=== PATIENT | female | born 1970 | race Caucasian/White ===

== ENCOUNTER 2019-01-04 19:20 | Inpatient (IN) | payer MEDICAID, OTHER ==
[2019-01-04 19:39] LABS: ADD MAN DIFF? NO
[2019-01-04 19:42] LABS: ABNORMAL IP MESSAGE 1; BASOPHIL # 0.1 10^3/ul (0.0-0.1); BASOPHILS % 0.6 % (0.0-2.0); EOSINOPHILS % 0.3 % (0.0-7.0); HEMATOCRIT 54.7 % (37.0-47.0); HEMOGLOBIN 15.1 g/dl (12.0-16.0); LYMPHOCYTES # 1.4 10^3/ul (0.8-2.9); MEAN CORPUSCULAR HEMOGLOBIN 25.3 pg (29.0-33.0); MEAN CORPUSCULAR HGB CONC 27.6 g/dl (32.0-37.0); MEAN CORPUSCULAR VOLUME 91.8 fl (82.0-101.0); MONOCYTE # 0.6 10^3/ul (0.3-0.9); MONOCYTES % 6.4 % (0.0-11.0); NEUTROPHIL # 7.5 10^3/ul (1.6-7.5); NEUTROPHILS % 77.8 % (39.0-77.0); NUCLEATED RED BLOOD CELLS # 0.1 10^3/ul (0.0-0.0); NUCLEATED RED BLOOD CELLS% 0.6 /100WBC (0.0-0.0); PLATELET COUNT 274 10^3/UL (140-415); RED BLOOD COUNT 5.96 10^6/ul (4.20-5.40); RED CELL DISTRIBUTION WIDTH 18.5 % (11.5-14.5)
[2019-01-04 19:42] LABS: WHITE BLOOD COUNT 9.6 10^3/ul (4.8-10.8)
[2019-01-04 19:49] LABS: POSITIVE DIFF @See below
[2019-01-04] MEDS: CEFTRIAXONE 1 GM/50 ML (PMX) 50 ML IVPB (19:50)
[2019-01-04] MEDS: METHYLPREDNISOLONE 125 MG INJ IV (19:50)
[2019-01-04] MEDS: MAGNESIUM SULFATE 2 GM/50 ML 50 ML IVPB ×2 (19:51→22:58)
[2019-01-04 20:00] LABS: ANION GAP 7 (5-13); BLOOD UREA NITROGEN 23 mg/dl (7-20); CALCIUM 8.5 mg/dl (8.4-10.2); CARBON DIOXIDE 32 mmol/L (21-31); CHLORIDE 103 mmol/L (97-110); CREATININE 1.53 mg/dl (0.44-1.00); Estimated GFR 37 mL/min (>60); GLUCOSE 171 mg/dl (70-220); POTASSIUM 4.8 mmol/L (3.5-5.1); SODIUM 142 mmol/L (135-144)
[2019-01-04] MEDS: ALBUTEROL 0.5% (NEB) 2.5 MG/0.5 ML AMP INH (20:03)
[2019-01-04] MEDS: IPRATROPIUM (NEB) 0.5 MG/2.5 ML AMP INH (20:03)
[2019-01-04 20:21] LABS: AADO2 Arterial 418.4 mmHg (7.0-24.0); Allen Test ACCEPTAB; Arterial Base Excess 1.4 mmol/L (-3.0-3); Arterial Blood Gas Oxygen Sat 98.7 mmHG (95.0-98.0); Arterial COHb 2.3 % (0.0-3.0); Arterial Fraction of Oxyhgb 95.8 % (93.0-99.0); Arterial HCO3 36.2 mmol/L (22.0-26.0); Arterial MetHb 0.6 % (0.0-1.5); Arterial pCO2 122.2 mmhg (35-45); Blood Gas IEPAP 15/5; Blood Gas PS 10; MODE MASK - BIPAP; Site Right Radial
[2019-01-04] MEDS: AZITHROMYCIN 500MG/NS (PMX) 250 ML IV (20:36)
[2019-01-04] MEDS: SODIUM CHLORIDE 0.9% 1L BAG IV* (20:36)
[2019-01-04] MEDS: ALBUTEROL/IPRATROPIUM (NEB) 3 ML AMP NEB (21:00)
[2019-01-04] MEDS ORDERED: ACETAMINOPHEN 325 MG TAB PO (21:00)
[2019-01-04] MEDS ORDERED: ONDANSETRON 4 MG INJ IV (21:00)
[2019-01-04 21:01] LABS: B-TYPE NATRIURETIC PEPTIDE 4740 PG/ML (0-125)
[2019-01-04 21:08] LABS: D-DIMER 900.98 ng/ml (<460)
[2019-01-04 21:59] LABS: AADO2 Arterial 143.5 mmHg (7.0-24.0); Allen Test ACCEPTAB; Arterial Base Excess 1.9 mmol/L (-3.0-3); Arterial Blood Gas Oxygen Sat 88.8 mmHG (95.0-98.0); Arterial Fraction of Oxyhgb 86.6 % (93.0-99.0); Arterial HCO3 36.7 mmol/L (22.0-26.0); Arterial MetHb 0.5 % (0.0-1.5); Arterial pCO2 123.6 mmhg (35-45); Blood Gas IEPAP 22/8; MODE MASK - BIPAP; Site Right Radial
[2019-01-04] MEDS ORDERED: HEPARIN 5,000 UNIT/1 ML VIAL SC (22:00)
[2019-01-04] MEDS: PANTOPRAZOLE 40 MG INJ IV (22:29)
[2019-01-04] MEDS: FUROSEMIDE 40 MG INJ IV (22:42)
[2019-01-04] MEDS: ENOXAPARIN 60 MG/0.6 ML SYG SC (22:47)
[2019-01-04 22:59] LABS: AADO2 Arterial 171.6 mmHg (7.0-24.0); Allen Test ACCEPTAB; Arterial Base Excess -1.8 mmol/L (-3.0-3); Arterial Blood Gas Oxygen Sat 93.1 mmHG (95.0-98.0); Arterial Fraction of Oxyhgb 90.8 % (93.0-99.0); Arterial HCO3 30.1 mmol/L (22.0-26.0); Arterial MetHb 0.5 % (0.0-1.5); Arterial pCO2 89.2 mmhg (35-45); Blood Gas IEPAP 22/8; MODE MASK - BIPAP; Site Right Radial
[2019-01-04 23:49] LABS: LACTIC ACID 0.9 mmol/L (0.5-2.0)
[2019-01-05 00:40] LABS: CREATINE KINASE 247 IU/L (23-200)
[2019-01-05 00:51] LABS: CK INDEX 1.9; CK-MB 4.69 ng/ml (0.0-2.4); TROPONIN-I 0.027 ng/ml (0.000-0.120)
[2019-01-05] MEDS: ALBUTEROL/IPRATROPIUM (NEB) 3 ML AMP NEB ×2 (01:40→05:00)
[2019-01-05] MEDS: METHYLPREDNISOLONE 40 MG INJ IV ×4 (01:58→18:14)
[2019-01-05 05:09] LABS: Allen Test ACCEPTAB; Arterial Base Excess 3.5 mmol/L (-3.0-3); Arterial Blood Gas Oxygen Sat 96.1 mmHG (95.0-98.0); Arterial COHb 1.7 % (0.0-3.0); Arterial Fraction of Oxyhgb 94.1 % (93.0-99.0); Arterial HCO3 38.3 mmol/L (22.0-26.0); Arterial MetHb 0.4 % (0.0-1.5); Arterial pCO2 128.1 mmhg (35-45); Blood Gas IEPAP 22/8; MODE MASK - BIPAP; Site Right Radial
[2019-01-05 05:37] LABS: WHITE BLOOD COUNT 8.7 10^3/ul (4.8-10.8)
[2019-01-05 05:37] LABS: ABNORMAL IP MESSAGE 1; HEMATOCRIT 52.9 % (37.0-47.0); HEMOGLOBIN 14.3 g/dl (12.0-16.0); MEAN CORPUSCULAR HEMOGLOBIN 25.6 pg (29.0-33.0); MEAN CORPUSCULAR VOLUME 94.8 fl (82.0-101.0); NUCLEATED RED BLOOD CELLS% 0.3 /100WBC (0.0-0.0); PLATELET COUNT 222 10^3/UL (140-415); RED BLOOD COUNT 5.58 10^6/ul (4.20-5.40); RED CELL DISTRIBUTION WIDTH 18.2 % (11.5-14.5)
[2019-01-05 05:40] LABS: ADD MAN DIFF? YES; POSITIVE DIFF @See below
[2019-01-05 05:54] LABS: HEMOGLOBIN A1C 5.7 % (0-5.9)
[2019-01-05 06:13] LABS: ALANINE AMINOTRANSFERASE 30 IU/L (13-69); ALBUMIN/GLOBULIN RATIO 0.78; ALKALINE PHOSPHATASE 123 IU/L (42-121); ANION GAP 6 (5-13); ASPARTATE AMINO TRANSFERASE 36 IU/L (15-46); BILIRUBIN,INDIRECT 0.2 mg/dl (0-1.1); BILIRUBIN,TOTAL 0.2 mg/dl (0.2-1.3); BLOOD UREA NITROGEN 25 mg/dl (7-20); CALCIUM 8.1 mg/dl (8.4-10.2); CARBON DIOXIDE 34 mmol/L (21-31); CHLORIDE 103 mmol/L (97-110); CHOL/HDL RATIO 4.5 RATIO; CHOLESTEROL 118 mg/dl (100-200); CREATINE KINASE 151 IU/L (23-200); CREATININE 1.88 mg/dl (0.44-1.00); Estimated GFR 29 mL/min (>60); GLUCOSE 162 mg/dl (70-220); HDL CHOLESTEROL 26 mg/dl (34-88); LDL CHOLESTEROL,CALCULATED 72 mg/dl; MAGNESIUM 2.9 mg/dl (1.7-2.5); POTASSIUM 5.9 mmol/L (3.5-5.1); SODIUM 143 mmol/L (135-144); TOTAL PROTEIN 6.8 g/dl (6.1-8.1); TRIGLYCERIDES 101 mg/dl (0-149)
[2019-01-05 06:15] LABS: CK INDEX 2.4; CK-MB 3.58 ng/ml (0.0-2.4); TROPONIN-I 0.026 ng/ml (0.000-0.120)
[2019-01-05 06:17] LABS: FREE T4 (FREE THYROXINE) 0.81 ng/dl (0.64-1.79)
[2019-01-05] MEDS: FUROSEMIDE 40 MG INJ IV ×2 (06:27→18:14)
[2019-01-05] MEDS: PANTOPRAZOLE 40 MG INJ IV (06:27)
[2019-01-05] MEDS: ALBUMIN HUMAN 25% 100 ML IV ×2 (06:28→09:28)
[2019-01-05 06:33] LABS: THYROID STIMULATING HORMONE 0.888 MIU/L (0.465-4.680)
[2019-01-05] MEDS: LORAZEPAM 2 MG INJ IV (06:57)
[2019-01-05] MEDS: PROPOFOL 100 ML IV (06:57)
[2019-01-05] MEDS ORDERED: SUCCINYLCHOLINE CHLORIDE 100 MG/5 ML SYG IV (07:00)
[2019-01-05 07:11] LABS: ANISOCYTOSIS 1+ (0-0); BAND NEUTROPHILS #M 1.8 10^3/ul (0.0-0.6); BAND NEUTROPHILS % (M) 21 % (0-4); ERYTHROBLAST% (NRBC) (M) 1 % (0-0); LYMPHOCYTES #M 0.4 10^3/ul (0.8-2.9); LYMPHOCYTES % (M) 5 % (15-51); MONOCYTES % (M) 1 % (0-11); PLATELET ESTIMATE NORMAL; POIKILOCYTOSIS 1+ (0-0); POLYCHROMASIA 2+ (0-0); SEG NEUT #M 6.5 10^3/ul (1.6-7.5); SEGMENTED NEUTROPHILS (M) % 73 % (39-77); SMUDGE%M 7 % (0-0); SPHEROCYTES 1+ (0-0)
[2019-01-05 07:30] LABS: AADO2 Arterial 358.8 mmHg (7.0-24.0); Allen Test ACCEPTAB; Arterial Base Excess -0.1 mmol/L (-3.0-3); Arterial COHb 1.4 % (0.0-3.0); Arterial Fraction of Oxyhgb 96.2 % (93.0-99.0); Arterial MetHb 0.4 % (0.0-1.5); Arterial pCO2 83.4 mmhg (35-45); MODE VENT - AC; Site Right Radial
[2019-01-05] MEDS: FENTAnyl (DRIP) 1000 mcg/100mL 100 ML IV (07:43)
[2019-01-05 07:56] LABS: FREE T3 2.67 pg/ml (2.77-5.27)
[2019-01-05] MEDS: ALBUTEROL HFA 8 GM INHALER INH ×3 (09:00→20:12)
[2019-01-05] MEDS: IPRATROPIUM (HFA) 12.9 GM INHALER INH ×3 (09:00→20:13)
[2019-01-05] MEDS: MIDAZOLAM (DRIP) 50 mg/50 mL 50 ML IV ×2 (09:28→19:36)
[2019-01-05] MEDS: LEVOFLOXACIN 250MG/D5W (PMX) 50 ML IVPB (09:54)
[2019-01-05] MEDS: NA POLYST SULFON 15 GM/60 ML BTL NGT (09:55)
[2019-01-05 12:41] LABS: ANION GAP 6 (5-13); BLOOD UREA NITROGEN 29 mg/dl (7-20); CALCIUM 8.3 mg/dl (8.4-10.2); CARBON DIOXIDE 32 mmol/L (21-31); CHLORIDE 104 mmol/L (97-110); CREATININE 2.01 mg/dl (0.44-1.00); Estimated GFR 27 mL/min (>60); GLUCOSE 120 mg/dl (70-220); POTASSIUM 5.3 mmol/L (3.5-5.1); SODIUM 142 mmol/L (135-144)
[2019-01-05] MEDS: CEFEPIME 2GM/50 ML (PMX) 50 ML IVPB (12:53)
[2019-01-05 13:01] LABS: AADO2 Arterial 288.5 mmHg (7.0-24.0); Allen Test ACCEPTAB; Arterial Base Excess 7.3 mmol/L (-3.0-3); Arterial Blood Gas Oxygen Sat 95.3 mmHG (95.0-98.0); Arterial COHb 0.8 % (0.0-3.0); Arterial Fraction of Oxyhgb 94.3 % (93.0-99.0); Arterial MetHb 0.3 % (0.0-1.5); Arterial pCO2 57.4 mmhg (35-45); MODE VENT - AC; Site Right Radial
[2019-01-05] MEDS: LIDOCAINE 1% (MPF) 5 ML VIAL SC (16:19)
[2019-01-05] MEDS: SOD CHLORIDE 0.9% 500 ML IV (21:14)
[2019-01-06] MEDS: METHYLPREDNISOLONE 40 MG INJ IV ×4 (00:06→18:41)
[2019-01-06] MEDS: ALBUTEROL HFA 8 GM INHALER INH ×6 (01:30→20:26)
[2019-01-06] MEDS: IPRATROPIUM (HFA) 12.9 GM INHALER INH ×6 (01:30→20:26)
[2019-01-06] MEDS ORDERED: LORAZEPAM 2 MG INJ (02:23)
[2019-01-06] MEDS: LORAZEPAM 2 MG INJ IV (02:32)
[2019-01-06 04:13] LABS: ADD MAN DIFF? NO
[2019-01-06 04:19] LABS: WHITE BLOOD COUNT 6.6 10^3/ul (4.8-10.8)
[2019-01-06 04:19] LABS: ABNORMAL IP MESSAGE 1; HEMOGLOBIN 11.6 g/dl (12.0-16.0); LYMPHOCYTES # 0.5 10^3/ul (0.8-2.9); LYMPHOCYTES % 7.6 % (15.0-51.0); MEAN CORPUSCULAR HEMOGLOBIN 25.6 pg (29.0-33.0); MEAN CORPUSCULAR VOLUME 88.1 fl (82.0-101.0); MEAN PLATELET VOLUME 9.7 fl (7.4-10.4); MONOCYTE # 0.2 10^3/ul (0.3-0.9); NEUTROPHIL # 5.8 10^3/ul (1.6-7.5); NEUTROPHILS % 88.8 % (39.0-77.0); NUCLEATED RED BLOOD CELLS% 0.3 /100WBC (0.0-0.0); PLATELET COUNT 229 10^3/UL (140-415); RED BLOOD COUNT 4.54 10^6/ul (4.20-5.40); RED CELL DISTRIBUTION WIDTH 18.4 % (11.5-14.5)
[2019-01-06 04:21] LABS: POSITIVE DIFF @See below
[2019-01-06 04:47] LABS: ALANINE AMINOTRANSFERASE 21 IU/L (13-69); ALBUMIN 2.8 g/dl (3.3-4.9); ALBUMIN/GLOBULIN RATIO 0.93; ALKALINE PHOSPHATASE 67 IU/L (42-121); ANION GAP 7 (5-13); ASPARTATE AMINO TRANSFERASE 28 IU/L (15-46); BILIRUBIN,INDIRECT 0.2 mg/dl (0-1.1); BILIRUBIN,TOTAL 0.2 mg/dl (0.2-1.3); BLOOD UREA NITROGEN 43 mg/dl (7-20); CALCIUM 8.4 mg/dl (8.4-10.2); CARBON DIOXIDE 29 mmol/L (21-31); CHLORIDE 107 mmol/L (97-110); CREATININE 2.25 mg/dl (0.44-1.00); Estimated GFR 23 mL/min (>60); GLUCOSE 115 mg/dl (70-220); POTASSIUM 5.1 mmol/L (3.5-5.1); SODIUM 143 mmol/L (135-144); TOTAL PROTEIN 5.8 g/dl (6.1-8.1)
[2019-01-06 04:49] LABS: MAGNESIUM 2.7 mg/dl (1.7-2.5)
[2019-01-06] MEDS: SOD CHLORIDE 0.9% 500 ML IV (05:07)
[2019-01-06] MEDS: ALBUMIN HUMAN 25% 100 ML IV ×2 (05:17→06:18)
[2019-01-06] MEDS: PANTOPRAZOLE 40 MG INJ IV (05:41)
[2019-01-06 08:13] LABS: AADO2 Arterial 160.9 mmHg (7.0-24.0); Allen Test ACCEPTAB; Arterial Base Excess 4.1 mmol/L (-3.0-3); Arterial Blood Gas Oxygen Sat 92.8 mmHG (95.0-98.0); Arterial COHb 0.9 % (0.0-3.0); Arterial Fraction of Oxyhgb 91.8 % (93.0-99.0); Arterial HCO3 29.6 mmol/L (22.0-26.0); Arterial MetHb 0.2 % (0.0-1.5); MODE VENT - AC; Site Right Radial
[2019-01-06] MEDS: SOD CHLORIDE 0.45% 1,000 ML IV (08:41)
[2019-01-06] MEDS: LEVOFLOXACIN 250MG/D5W (PMX) 50 ML IVPB (08:43)
[2019-01-06] MEDS: POLYETHYLENE GLYCOL 17 GM PACKET PO (15:24)
[2019-01-06] MEDS: CEFEPIME 2GM/50 ML (PMX) 50 ML IVPB (15:24)
[2019-01-06] MEDS: ENOXAPARIN 40 MG/0.4 ML SYG SC (15:25)
[2019-01-06] MEDS: FENTAnyl (DRIP) 1000 mcg/100mL 100 ML IV (21:12)
[2019-01-07] MEDS: METHYLPREDNISOLONE 40 MG INJ IV ×4 (00:09→18:12)
[2019-01-07] MEDS: ALBUTEROL HFA 8 GM INHALER INH ×6 (01:10→21:34)
[2019-01-07] MEDS: IPRATROPIUM (HFA) 12.9 GM INHALER INH ×6 (01:11→21:34)
[2019-01-07 05:25] LABS: ABNORMAL IP MESSAGE 1; MEAN CORPUSCULAR HEMOGLOBIN 25.5 pg (29.0-33.0); MEAN CORPUSCULAR HGB CONC 28.6 g/dl (32.0-37.0); MEAN CORPUSCULAR VOLUME 89.4 fl (82.0-101.0); MEAN PLATELET VOLUME 9.7 fl (7.4-10.4); PLATELET COUNT 245 10^3/UL (140-415); RED CELL DISTRIBUTION WIDTH 17.7 % (11.5-14.5)
[2019-01-07 05:25] LABS: WHITE BLOOD COUNT 6.5 10^3/ul (4.8-10.8)
[2019-01-07 05:29] LABS: POSITIVE DIFF @See below
[2019-01-07 05:31] LABS: ADD MAN DIFF? YES
[2019-01-07] MEDS: PANTOPRAZOLE 40 MG INJ IV (05:33)
[2019-01-07] MEDS: SOD CHLORIDE 0.45% 1,000 ML IV (05:33)
[2019-01-07 05:48] LABS: ANION GAP 9 (5-13); BLOOD UREA NITROGEN 58 mg/dl (7-20); CALCIUM 8.8 mg/dl (8.4-10.2); CARBON DIOXIDE 30 mmol/L (21-31); CHLORIDE 106 mmol/L (97-110); CREATININE 2.07 mg/dl (0.44-1.00); Estimated GFR 26 mL/min (>60); GLUCOSE 127 mg/dl (70-220); MAGNESIUM 2.8 mg/dl (1.7-2.5); PHOSPHORUS 5.6 mg/dl (2.5-4.9); SODIUM 145 mmol/L (135-144)
[2019-01-07 05:58] LABS: ALANINE AMINOTRANSFERASE 22 IU/L (13-69); ALBUMIN 3.1 g/dl (3.3-4.9); ALBUMIN/GLOBULIN RATIO 0.93; ALKALINE PHOSPHATASE 69 IU/L (42-121); ANION GAP 10 (5-13); ASPARTATE AMINO TRANSFERASE 24 IU/L (15-46); BILIRUBIN,INDIRECT 0.4 mg/dl (0-1.1); BILIRUBIN,TOTAL 0.4 mg/dl (0.2-1.3); BLOOD UREA NITROGEN 56 mg/dl (7-20); CALCIUM 8.6 mg/dl (8.4-10.2); CARBON DIOXIDE 30 mmol/L (21-31); CHLORIDE 105 mmol/L (97-110); CREATININE 2.26 mg/dl (0.44-1.00); Estimated GFR 23 mL/min (>60); GLUCOSE 131 mg/dl (70-220); POTASSIUM 4.7 mmol/L (3.5-5.1); SODIUM 145 mmol/L (135-144); TOTAL PROTEIN 6.4 g/dl (6.1-8.1)
[2019-01-07] MEDS: DEXTROSE 5% 1,000 ML IV (08:42)
[2019-01-07] MEDS: ENOXAPARIN 40 MG/0.4 ML SYG SC (08:43)
[2019-01-07 08:56] LABS: ANISOCYTOSIS 2+ (0-0); BAND NEUTROPHILS #M 0.5 10^3/ul (0.0-0.6); BAND NEUTROPHILS % (M) 8 % (0-4); LYMPHOCYTES #M 0.2 10^3/ul (0.8-2.9); LYMPHOCYTES % (M) 4 % (15-51); MICROCYTOSIS 2+ (0-0); OVALOCYTES 1+ (0-0); PLATELET ESTIMATE NORMAL; POLYCHROMASIA 3+ (0-0); REACTIVE LYMPHOCYTES #M 0.2 10^3/ul (0.0-0.0); REACTIVE LYMPHOCYTES% (M) 4 % (0-0); SEG NEUT #M 5.5 10^3/ul (1.6-7.5); SEGMENTED NEUTROPHILS (M) % 84 % (39-77); SMUDGE%M 7 % (0-0); STOMATOCYTES 2+ (0-0)
[2019-01-07] MEDS: LEVOFLOXACIN 250MG/D5W (PMX) 50 ML IVPB (09:01)
[2019-01-07 09:55] LABS: AADO2 Arterial 154.5 mmHg (7.0-24.0); Allen Test ACCEPTAB; Arterial Blood Gas Oxygen Sat 95.9 mmHG (95.0-98.0); Arterial COHb 0.5 % (0.0-3.0); Arterial Fraction of Oxyhgb 95.1 % (93.0-99.0); Arterial HCO3 30.3 mmol/L (22.0-26.0); Arterial MetHb 0.3 % (0.0-1.5); Arterial pCO2 64.2 mmhg (35-45); Blood Gas PS 10; MODE VENT - CPAP; Site Right Radial
[2019-01-07] MEDS: FUROSEMIDE 40 MG INJ IV (10:22)
[2019-01-07] MEDS: CEFEPIME 2GM/50 ML (PMX) 50 ML IVPB (10:38)
[2019-01-07 12:18] LABS: AADO2 Arterial 86.7 mmHg (7.0-24.0); Allen Test ACCEPTAB; Arterial Base Excess 3.6 mmol/L (-3.0-3); Arterial Blood Gas Oxygen Sat 93.5 mmHG (95.0-98.0); Arterial COHb 0.6 % (0.0-3.0); Arterial Fraction of Oxyhgb 92.8 % (93.0-99.0); Arterial HCO3 32.7 mmol/L (22.0-26.0); Arterial MetHb 0.2 % (0.0-1.5); Arterial pCO2 71.7 mmhg (35-45); Blood Gas PS 10; MODE VENT - CPAP; Site Right Radial
[2019-01-07] MEDS: MIDAZOLAM (DRIP) 50 mg/50 mL 50 ML IV (12:37)
[2019-01-07 16:41] LABS: ADD UMIC YES; UR ASCORBIC ACID NEGATIVE (NEGATIVE); UR BILIRUBIN (Dip) NEGATIVE (NEGATIVE); UR BLOOD (Dip) 2+ mg/dL (NEGATIVE); UR CLARITY SLIGHTLY CLOUDY (CLEAR); UR COLOR YELLOW (YELLOW); UR GLUCOSE (Dip) 1+ mg/dL (NEGATIVE); UR HYALINE CAST FEW /HPF (NONE SEEN); UR KETONES (Dip) NEGATIVE (NEGATIVE); UR LEUKOCYTE ESTERASE (Dip) NEGATIVE Leu/ul (NEGATIVE); UR MUCUS FEW /HPF (NONE SEEN); UR NITRITE (Dip) NEGATIVE (NEGATIVE); UR RBC > 182 /HPF (0-5); UR SPECIFIC GRAVITY (Dip) 1.017 (1.003-1.030); UR SQUAMOUS EPITHELIAL CELL FEW /HPF (FEW); UR TOTAL PROTEIN (Dip) 3+ mg/dl (NEGATIVE); UR UROBILINOGEN (Dip) NEGATIVE (NEGATIVE); UR WBC 13 /HPF (0-5)
[2019-01-07 16:58] LABS: CREATININE,URINE RANDOM 105.35 mg/dl (20-320)
[2019-01-07 16:58] LABS: SODIUM,URINE RANDOM 39 mmol/L (30-90)
[2019-01-08] MEDS: METHYLPREDNISOLONE 40 MG INJ IV ×5 (00:24→23:15)
[2019-01-08] MEDS: ALBUTEROL HFA 8 GM INHALER INH ×3 (01:24→08:27)
[2019-01-08] MEDS: IPRATROPIUM (HFA) 12.9 GM INHALER INH ×3 (01:25→08:27)
[2019-01-08 04:48] LABS: ADD MAN DIFF? NO
[2019-01-08 04:52] LABS: WHITE BLOOD COUNT 5.6 10^3/ul (4.8-10.8)
[2019-01-08 04:52] LABS: ABNORMAL IP MESSAGE 1; HEMATOCRIT 40.6 % (37.0-47.0); HEMOGLOBIN 11.7 g/dl (12.0-16.0); LYMPHOCYTES # 0.3 10^3/ul (0.8-2.9); LYMPHOCYTES % 5.4 % (15.0-51.0); MEAN CORPUSCULAR HEMOGLOBIN 25.5 pg (29.0-33.0); MEAN CORPUSCULAR HGB CONC 28.8 g/dl (32.0-37.0); MEAN CORPUSCULAR VOLUME 88.5 fl (82.0-101.0); MEAN PLATELET VOLUME 9.8 fl (7.4-10.4); MONOCYTE # 0.2 10^3/ul (0.3-0.9); MONOCYTES % 2.7 % (0.0-11.0); NEUTROPHIL # 5.1 10^3/ul (1.6-7.5); NEUTROPHILS % 91.4 % (39.0-77.0); PLATELET COUNT 202 10^3/UL (140-415); RED BLOOD COUNT 4.59 10^6/ul (4.20-5.40); RED CELL DISTRIBUTION WIDTH 17.5 % (11.5-14.5)
[2019-01-08 05:05] LABS: POSITIVE DIFF @See below
[2019-01-08 05:16] LABS: ALANINE AMINOTRANSFERASE 29 IU/L (13-69); ALBUMIN 2.8 g/dl (3.3-4.9); ALBUMIN/GLOBULIN RATIO 0.96; ALKALINE PHOSPHATASE 57 IU/L (42-121); ANION GAP 9 (5-13); ASPARTATE AMINO TRANSFERASE 25 IU/L (15-46); BILIRUBIN,INDIRECT 0.4 mg/dl (0-1.1); BILIRUBIN,TOTAL 0.4 mg/dl (0.2-1.3); BLOOD UREA NITROGEN 60 mg/dl (7-20); CALCIUM 8.4 mg/dl (8.4-10.2); CARBON DIOXIDE 31 mmol/L (21-31); CHLORIDE 99 mmol/L (97-110); CREATININE 1.78 mg/dl (0.44-1.00); Estimated GFR 31 mL/min (>60); GLUCOSE 307 mg/dl (70-220); POTASSIUM 4.3 mmol/L (3.5-5.1); SODIUM 139 mmol/L (135-144); TOTAL PROTEIN 5.7 g/dl (6.1-8.1)
[2019-01-08 05:22] LABS: PHOSPHORUS 4.6 mg/dl (2.5-4.9)
[2019-01-08 05:22] LABS: MAGNESIUM 2.5 mg/dl (1.7-2.5)
[2019-01-08] MEDS: PANTOPRAZOLE 40 MG INJ IV (05:36)
[2019-01-08] MEDS: FUROSEMIDE 40 MG INJ IV (08:29)
[2019-01-08] MEDS: ENOXAPARIN 40 MG/0.4 ML SYG SC (08:34)
[2019-01-08 09:47] LABS: AADO2 Arterial 125.6 mmHg (7.0-24.0); Allen Test ACCEPTAB; Arterial Base Excess 5.6 mmol/L (-3.0-3); Arterial Blood Gas Oxygen Sat 95.8 mmHG (95.0-98.0); Arterial COHb 0.9 % (0.0-3.0); Arterial Fraction of Oxyhgb 94.6 % (93.0-99.0); Arterial HCO3 33.2 mmol/L (22.0-26.0); Arterial MetHb 0.4 % (0.0-1.5); Blood Gas PS 10; MODE VENT - CPAP; Site Right Radial
[2019-01-08] MEDS: LEVOFLOXACIN 250MG/D5W (PMX) 50 ML IVPB (11:07)
[2019-01-08] MEDS: CEFEPIME 2GM/50 ML (PMX) 50 ML IVPB (12:03)
[2019-01-08] MEDS: ALBUTEROL/IPRATROPIUM (NEB) 3 ML AMP HHN ×3 (14:11→20:23)
[2019-01-08] MEDS ORDERED: PENDING SANTYL ORDER FOR WOUND CARE XX (15:30)
[2019-01-09] MEDS: ALBUTEROL/IPRATROPIUM (NEB) 3 ML AMP HHN ×6 (00:31→20:44)
[2019-01-09 04:52] LABS: ADD MAN DIFF? NO
[2019-01-09 04:59] LABS: WHITE BLOOD COUNT 4.8 10^3/ul (4.8-10.8)
[2019-01-09 04:59] LABS: ABNORMAL IP MESSAGE 1; HEMOGLOBIN 12.4 g/dl (12.0-16.0); LYMPHOCYTES # 0.2 10^3/ul (0.8-2.9); LYMPHOCYTES % 3.1 % (15.0-51.0); MEAN CORPUSCULAR HGB CONC 28.2 g/dl (32.0-37.0); MEAN CORPUSCULAR VOLUME 88.7 fl (82.0-101.0); MEAN PLATELET VOLUME 9.6 fl (7.4-10.4); MONOCYTE # 0.2 10^3/ul (0.3-0.9); MONOCYTES % 3.1 % (0.0-11.0); NEUTROPHIL # 4.5 10^3/ul (1.6-7.5); NEUTROPHILS % 93.4 % (39.0-77.0); PLATELET COUNT 202 10^3/UL (140-415); RED BLOOD COUNT 4.96 10^6/ul (4.20-5.40); RED CELL DISTRIBUTION WIDTH 16.8 % (11.5-14.5)
[2019-01-09 05:08] LABS: POSITIVE DIFF @See below
[2019-01-09] MEDS: METHYLPREDNISOLONE 40 MG INJ IV ×3 (05:15→23:53)
[2019-01-09] MEDS: PANTOPRAZOLE 40 MG INJ IV (05:15)
[2019-01-09 05:31] LABS: ANION GAP 8 (5-13); BLOOD UREA NITROGEN 57 mg/dl (7-20); CALCIUM 9.1 mg/dl (8.4-10.2); CARBON DIOXIDE 33 mmol/L (21-31); CHLORIDE 103 mmol/L (97-110); CREATININE 1.63 mg/dl (0.44-1.00); Estimated GFR 34 mL/min (>60); GLUCOSE 194 mg/dl (70-220); MAGNESIUM 2.6 mg/dl (1.7-2.5); PHOSPHORUS 4.6 mg/dl (2.5-4.9); POTASSIUM 4.2 mmol/L (3.5-5.1); SODIUM 144 mmol/L (135-144)
[2019-01-09 07:58] LABS: AADO2 Arterial 36.5 mmHg (7.0-24.0); Allen Test ACCEPTAB; Arterial Blood Gas Oxygen Sat 94.4 mmHG (95.0-98.0); Arterial COHb 0.8 % (0.0-3.0); Arterial Fraction of Oxyhgb 93.4 % (93.0-99.0); Arterial HCO3 31.8 mmol/L (22.0-26.0); Arterial MetHb 0.3 % (0.0-1.5); Arterial pCO2 62.8 mmhg (35-45); MODE NASAL CANNULA; Site Left Radial
[2019-01-09] MEDS: FUROSEMIDE 40 MG INJ IV (08:13)
[2019-01-09] MEDS: ENOXAPARIN 40 MG/0.4 ML SYG SC (08:15)
[2019-01-09] MEDS: LEVOFLOXACIN 250MG/D5W (PMX) 50 ML IVPB (09:07)
[2019-01-09 16:26] LABS: CREATININE, RANDOM URINE 104 mg/dL (20-275); MICROALBUMIN 295.7 mg/dL; MICROALBUMIN/CREATININE RATIO 2843 (<30)
[2019-01-09] MEDS ORDERED: hydrALAzine 20 MG INJ IV (17:00)
[2019-01-09] MEDS: BALSAM PERU/CASTOR OIL 60 GM TUBE TOP (20:31)
[2019-01-10] MEDS: ALBUTEROL/IPRATROPIUM (NEB) 3 ML AMP HHN ×5 (01:31→21:00)
[2019-01-10 05:12] LABS: ADD MAN DIFF? NO
[2019-01-10 05:22] LABS: ABNORMAL IP MESSAGE 1; HEMATOCRIT 43.1 % (37.0-47.0); HEMOGLOBIN 12.5 g/dl (12.0-16.0); LYMPHOCYTES # 0.2 10^3/ul (0.8-2.9); MEAN CORPUSCULAR HEMOGLOBIN 25.9 pg (29.0-33.0); MEAN CORPUSCULAR VOLUME 89.2 fl (82.0-101.0); MEAN PLATELET VOLUME 10.3 fl (7.4-10.4); MONOCYTE # 0.1 10^3/ul (0.3-0.9); MONOCYTES % 3.1 % (0.0-11.0); NEUTROPHIL # 4.2 10^3/ul (1.6-7.5); NEUTROPHILS % 92.5 % (39.0-77.0); PLATELET COUNT 177 10^3/UL (140-415); RED BLOOD COUNT 4.83 10^6/ul (4.20-5.40); RED CELL DISTRIBUTION WIDTH 16.6 % (11.5-14.5)
[2019-01-10 05:22] LABS: WHITE BLOOD COUNT 4.5 10^3/ul (4.8-10.8)
[2019-01-10 05:42] LABS: POSITIVE DIFF @See below
[2019-01-10 05:44] LABS: PHOSPHORUS 4.3 mg/dl (2.5-4.9)
[2019-01-10 05:44] LABS: MAGNESIUM 2.4 mg/dl (1.7-2.5)
[2019-01-10 05:54] LABS: ANION GAP 7 (5-13); BLOOD UREA NITROGEN 53 mg/dl (7-20); CALCIUM 8.7 mg/dl (8.4-10.2); CARBON DIOXIDE 34 mmol/L (21-31); CHLORIDE 101 mmol/L (97-110); CREATININE 1.48 mg/dl (0.44-1.00); Estimated GFR 38 mL/min (>60); GLUCOSE 139 mg/dl (70-220); POTASSIUM 4.4 mmol/L (3.5-5.1); SODIUM 142 mmol/L (135-144)
[2019-01-10] MEDS: BALSAM PERU/CASTOR OIL 60 GM TUBE TOP ×2 (09:27→21:00)
[2019-01-10] MEDS: FUROSEMIDE 40 MG INJ IV (09:27)
[2019-01-10] MEDS: FAMOTIDINE 20 MG TAB PO (09:28)
[2019-01-10] MEDS: ENOXAPARIN 40 MG/0.4 ML SYG SC (09:33)
[2019-01-10] MEDS: LEVOFLOXACIN 250 MG TAB PO (10:51)
[2019-01-10] MEDS: METHYLPREDNISOLONE 40 MG INJ IV (12:26)
[2019-01-10 12:33] LABS: AADO2 Arterial 30.4 mmHg (7.0-24.0); Allen Test ACCEPTAB; Arterial Base Excess 8.2 mmol/L (-3.0-3); Arterial Blood Gas Oxygen Sat 83.2 mmHG (95.0-98.0); Arterial COHb 1.1 % (0.0-3.0); Arterial HCO3 35.4 mmol/L (22.0-26.0); Arterial MetHb 0.3 % (0.0-1.5); Arterial pCO2 59.2 mmhg (35-45); MODE ROOM AIR; Site Left Radial
[2019-01-11] MEDS: BALSAM PERU/CASTOR OIL 60 GM TUBE TOP ×3 (00:07→20:45)
[2019-01-11] MEDS: ZOLPIDEM 5 MG TAB PO (00:07)
[2019-01-11] MEDS: METHYLPREDNISOLONE 40 MG INJ IV ×2 (01:19→13:28)
[2019-01-11] MEDS: ALBUTEROL/IPRATROPIUM (NEB) 3 ML AMP HHN ×6 (01:32→20:39)
[2019-01-11 05:28] LABS: ADD MAN DIFF? NO
[2019-01-11 05:31] LABS: ABNORMAL IP MESSAGE 1; EOSINOPHILS % 0.2 % (0.0-7.0); HEMATOCRIT 43.7 % (37.0-47.0); HEMOGLOBIN 12.6 g/dl (12.0-16.0); LYMPHOCYTES # 0.2 10^3/ul (0.8-2.9); MEAN CORPUSCULAR HEMOGLOBIN 25.4 pg (29.0-33.0); MEAN CORPUSCULAR HGB CONC 28.8 g/dl (32.0-37.0); MEAN CORPUSCULAR VOLUME 87.9 fl (82.0-101.0); MONOCYTE # 0.2 10^3/ul (0.3-0.9); NEUTROPHIL # 4.7 10^3/ul (1.6-7.5); PLATELET COUNT 165 10^3/UL (140-415); RED BLOOD COUNT 4.97 10^6/ul (4.20-5.40); RED CELL DISTRIBUTION WIDTH 16.5 % (11.5-14.5)
[2019-01-11 05:31] LABS: WHITE BLOOD COUNT 5.1 10^3/ul (4.8-10.8)
[2019-01-11 05:34] LABS: NEUTROPHILS % 91.7 % (39.0-77.0); POSITIVE DIFF @See below
[2019-01-11 05:35] LABS: LYMPHOCYTES % 4.7 % (15.0-51.0)
[2019-01-11 05:52] LABS: ANION GAP 6 (5-13); BLOOD UREA NITROGEN 58 mg/dl (7-20); CALCIUM 8.7 mg/dl (8.4-10.2); CARBON DIOXIDE 35 mmol/L (21-31); CHLORIDE 100 mmol/L (97-110); CREATININE 1.28 mg/dl (0.44-1.00); Estimated GFR 45 mL/min (>60); GLUCOSE 138 mg/dl (70-220); MAGNESIUM 2.2 mg/dl (1.7-2.5); PHOSPHORUS 3.8 mg/dl (2.5-4.9); POTASSIUM 4.8 mmol/L (3.5-5.1); SODIUM 141 mmol/L (135-144)
[2019-01-11] MEDS: LEVOFLOXACIN 250 MG TAB PO (06:49)
[2019-01-11] MEDS: FAMOTIDINE 20 MG TAB PO (08:44)
[2019-01-11] MEDS: ENOXAPARIN 40 MG/0.4 ML SYG SC (08:46)
[2019-01-11] MEDS: BUMETANIDE 1 MG TAB PO (08:57)
[2019-01-12] MEDS: METHYLPREDNISOLONE 40 MG INJ IV
[2019-01-12] MEDS: ALBUTEROL/IPRATROPIUM (NEB) 3 ML AMP HHN ×5 (00:04→16:40)
[2019-01-12] MEDS: LEVOFLOXACIN 250 MG TAB PO (05:59)
[2019-01-12] MEDS: BUMETANIDE 1 MG TAB PO (08:55)
[2019-01-12] MEDS: FAMOTIDINE 20 MG TAB PO (08:55)
[2019-01-12] MEDS: ENOXAPARIN 40 MG/0.4 ML SYG SC (08:57)
[2019-01-12] MEDS: BALSAM PERU/CASTOR OIL 60 GM TUBE TOP (08:58)
[2019-01-12 09:54] LABS: MAGNESIUM 2.1 mg/dl (1.7-2.5)
[2019-01-12 09:54] LABS: PHOSPHORUS 4.8 mg/dl (2.5-4.9)
[2019-01-12 09:55] LABS: ANION GAP 4 (5-13); BLOOD UREA NITROGEN 59 mg/dl (7-20); CALCIUM 9.2 mg/dl (8.4-10.2); CARBON DIOXIDE 37 mmol/L (21-31); CHLORIDE 103 mmol/L (97-110); CREATININE 1.14 mg/dl (0.44-1.00); Estimated GFR 51 mL/min (>60); GLUCOSE 157 mg/dl (70-220); POTASSIUM 4.9 mmol/L (3.5-5.1); SODIUM 144 mmol/L (135-144)
== END 2019-01-12 17:40 | disposition home or self-care (01) | DRG 208 ==
LOC: TEL 01-10 05:30 → 2NE 01-10 16:35 → E/R 19:20 → ICU 21:50
PROC: 5A1945Z Respiratory Ventilation, 24-96 Consecutive Hours (ICD-10-PCS; principal; 2019-01-05)
PROC: 0BH17EZ Insertion of Endotracheal Airway into Trachea, Via Natural or Artificial Opening (ICD-10-PCS; 2019-01-05)
PROC: 02HV33Z Insertion of Infusion Device into Superior Vena Cava, Percutaneous Approach (ICD-10-PCS; 2019-01-05)
DX: J45.901 Unspecified asthma with (acute) exacerbation (principal); I50.33 Acute on chronic diastolic (congestive) heart failure; J96.01 Acute respiratory failure with hypoxia; G92 Toxic encephalopathy; N17.0 Acute kidney failure with tubular necrosis; J18.9 Pneumonia, unspecified organism; J96.02 Acute respiratory failure with hypercapnia; E87.2 Acidosis; E66.2 Morbid (severe) obesity with alveolar hypoventilation; Z68.44 Body mass index [BMI] 60.0-69.9, adult; E87.5 Hyperkalemia; J20.9 Acute bronchitis, unspecified; N18.9 Chronic kidney disease, unspecified; R00.1 Bradycardia, unspecified
CPT/HCPCS: 31500; 36569; 36600; 71045; 76775; 76937; 80048; 80053; 80061; 81001; 81003; 82043; 82306; 82550; 82553; 82803; 82962; 83036; 83605; 83735; 83880; 84100; 84155; 84300; 84439; 84443; 84481; 84484; 85025; 85378; 87040; 87081; 93005; 93306; 93970; 94002; 94003; 94640; 94644; 94660; 94664; 94770; 96365; 96368; 96375; 97116; 97162; 97167; 97530; 99291-25